=== PATIENT | male | born 1955 | race Caucasian/White ===

== ENCOUNTER 2016-08-21 10:33 | Emergency (ER) | payer MEDICAID ==
[~2016-08-21] VITALS: Ht 172.7 cm; Wt 83.8 kg
[2016-08-21 10:37] VITALS: BP 162/88
[2016-08-21] MEDS ORDERED: DIPH,PERTUSS(ACELL),TET VAC/PF 0.5 ML IM-VACC ONE ×2 (11:24→11:30)
[2016-08-21] MEDS ORDERED: LIDOCAINE 1%, 20ML SQ ONE (12:30)
== END 2016-08-21 12:59 | disposition home or self-care (01) ==
LOC: ED 11:35
DX: S01.511A Laceration without foreign body of lip, initial encounter (principal); S00.83XA Contusion of other part of head, initial encounter; S09.8XXA Other specified injuries of head, initial encounter; Z23 Encounter for immunization; Y04.0XXA Assault by unarmed brawl or fight, initial encounter; Y93.89 Activity, other specified; Y99.8 Other external cause status; Y92.69 Other specified industrial and construction area as the place of occurrence of the external cause
CPT/HCPCS: 12011; 70450; 70486; 90471; 90715